=== PATIENT | female | born 1940 | race African-American/Black ===

== ENCOUNTER 2020-10-06 10:08 | Inpatient (IN) ==
[~2020-10-06 10:08] MED LIST: ASPIRIN 325 MG TABLET PO ONE; DIAZEPAM 5 MG TABLET PO ONE; MAGNESIUM SULF RIDER 2 GM/50 ML PREMIX IV PRN; POTASSIUM CHLORIDE RIDER 10 MEQ/100 ML PREMIX IV PRN; diphenhydrAMINE CAP 50 MG CAPSULE PO ONE
[2020-10-06 10:53] LABS: Basophils % 0.4 % (0.0-0.8); Eosinophils # 0.1 10*3/uL (0.0-0.87); Eosinophils % 1.5 % (0.00-10.9); Hematocrit 44.4 VOL% (35.7-47.0); Immature Granulocytes % 0.1 %; Immature Granulocytes Absolute 0.01 #; Lymphocytes # 2.1 10*3/uL (1.4-4.0); Mean Corpuscular HGB Conc 31.5 GM/DL (32-36); Mean Corpuscular Volume 85.7 FL (87-102); Mean Platelet Volume 12.6 FL (9.6-12.0); Monocytes % 11.4 % (1.7-12.7); Neutrophils % 54.6 % (38.7-73.9); Platelet Count 161 T/CUMM (130-400); Red Blood Count 5.18 MC/CUMM (3.8-5.5); Red Cell Distribution Width 12.5 % (9.3-17.3); White Blood Count 6.7 T/CUMM (4-12)
[2020-10-06] MEDS ORDERED: LIDOCAINE 1% 20 ML VIAL ONE (10:53)
[2020-10-06 11:03] LABS: INR 0.9; PT Patient Result 10.3 SECS (10.5-12.0)
[2020-10-06 11:12] LABS: Calcium 9.2 MG/DL (8.5-10.1); Osmolality,Calculated 282.4 MOS/KG (273-304)
[2020-10-06] MEDS ORDERED: ASPIRIN 325 MG TABLET ONE (11:13)
[2020-10-06] MEDS ORDERED: DIAZEPAM 5 MG TABLET ONE (11:13)
[2020-10-06] MEDS ORDERED: diphenhydrAMINE CAP 50 MG CAPSULE ONE (11:13)
[2020-10-06] MEDS: SODIUM CHLORIDE 0.9% 1,000 ML IV SCH ×2 (11:17→17:56)
[2020-10-06] MEDS ORDERED: HYDROmorphone 2 MG/1 ML VIAL ONE (11:48)
[2020-10-06] MEDS ORDERED: MIDAZOLAM 2 MG/2 ML VIAL ONE (11:48)
[2020-10-06] MEDS ORDERED: HEPARIN 5,000 UNIT/1 ML VIAL ONE ×2 (12:32→12:33)
[2020-10-06] MEDS ORDERED: hydrALAZINE 20 MG/1 ML VIAL ONE (13:30)
[2020-10-06] MEDS ORDERED: NITROGLYCERIN DRIP 50 MG/250 ML BOTTLE IV ONE (13:38)
[2020-10-06 19:37] LABS: Basophils % 0.1 % (0.0-0.8); Eosinophils # 0.1 10*3/uL (0.0-0.87); Eosinophils % 0.7 % (0.00-10.9); Hemoglobin 12.7 GM/DL (12.0-16.0); Immature Granulocytes % 0.5 %; Immature Granulocytes Absolute 0.05 #; Lymphocytes # 1.6 10*3/uL (1.4-4.0); Mean Corpuscular HGB Conc 30.2 GM/DL (32-36); Mean Corpuscular Volume 87.9 FL (87-102); Mean Platelet Volume 12.4 FL (9.6-12.0); Monocytes % 9.9 % (1.7-12.7); Neutrophils % 71.8 % (38.7-73.9); Platelet Count 143 T/CUMM (130-400); Red Blood Count 4.78 MC/CUMM (3.8-5.5); Red Cell Distribution Width 12.6 % (9.3-17.3); White Blood Count 9.2 T/CUMM (4-12)
[2020-10-06] MEDS ORDERED: MORPHINE 2 MG/1 ML SYRINGE IV PRN (19:54)
[2020-10-06 19:55] LABS: Calcium 8.5 MG/DL (8.5-10.1); Osmolality,Calculated 286.4 MOS/KG (273-304); Potassium 4.4 MMOL/L (3.5-5.1)
[2020-10-07] MEDS: SODIUM CHLORIDE 0.9% 1,000 ML IV SCH ×3 (01:26→23:23)
[2020-10-07] MEDS ORDERED: CLOPIDOGREL 75 MG TABLET PO SCH (09:00)
[2020-10-07] MEDS ORDERED: FUROSEMIDE 40 MG TABLET PO SCH (09:00)
[2020-10-07] MEDS ORDERED: lisinopriL 20 MG TABLET PO SCH (09:00)
[2020-10-07] MEDS: INSULIN REGULAR 100 UNIT/ML SUBCUT SCH ×5 (10:16→23:24)
[2020-10-07] MEDS: GABAPENTIN 300 MG CAPSULE PO SCH ×3 (10:16→20:25)
[2020-10-07] MEDS: MULTIVITAMIN (BEROCCA) TABLET PO SCH ×2 (10:16→12:58)
[2020-10-07] MEDS: INSULIN NPH 100 UNIT/ML SUBCUT SCH ×2 (10:16→23:24)
[2020-10-07] MEDS: OMEGA 3 ACID ETHYL ESTERS 1 GM CAPSULE PO SCH ×2 (10:17→12:59)
[2020-10-07] MEDS: PARoxetine 10 MG TABLET PO SCH ×2 (10:17→12:59)
[2020-10-07] MEDS: CHOLECALCIFEROL 1,000 UNIT TABLET PO SCH (10:19)
[2020-10-07] MEDS: carvediloL 6.25 MG TABLET PO SCH ×3 (10:24→20:25)
[2020-10-07] MEDS ORDERED: DIAZEPAM 5 MG TABLET PO ONE (10:31)
[2020-10-07] MEDS ORDERED: diphenhydrAMINE CAP 25 MG CAPSULE PO ONE (10:31)
[2020-10-07 10:40] LABS: Basophils % 0.2 % (0.0-0.8); Eosinophils # 0.1 10*3/uL (0.0-0.87); Eosinophils % 0.6 % (0.00-10.9); Hemoglobin 10.9 GM/DL (12.0-16.0); Immature Granulocytes % 0.5 %; Immature Granulocytes Absolute 0.04 #; Lymphocytes # 1.4 10*3/uL (1.4-4.0); Lymphocytes % 16.1 % (21.3-54.2); Mean Corpuscular HGB Conc 29.5 GM/DL (32-36); Mean Corpuscular Volume 88.1 FL (87-102); Mean Platelet Volume 11.7 FL (9.6-12.0); Monocytes % 11.9 % (1.7-12.7); Neutrophils % 70.7 % (38.7-73.9); Platelet Count 131 T/CUMM (130-400); Red Cell Distribution Width 12.8 % (9.3-17.3); White Blood Count 8.8 T/CUMM (4-12)
[2020-10-07] MEDS ORDERED: LIDOCAINE 1% 20 ML VIAL ONE (11:08)
[2020-10-07] MEDS ORDERED: HYDROmorphone 2 MG/1 ML VIAL ONE (11:11)
[2020-10-07] MEDS ORDERED: MIDAZOLAM 2 MG/2 ML VIAL ONE (11:12)
[2020-10-07 11:22] LABS: Calcium 8.1 MG/DL (8.5-10.1); Osmolality,Calculated 290.4 MOS/KG (273-304); Potassium 4.2 MMOL/L (3.5-5.1)
[2020-10-07] MEDS ORDERED: HEPARIN 5,000 UNIT/1 ML VIAL ONE (11:42)
[2020-10-07] MEDS ORDERED: ZALEPLON 5 MG CAPSULE PO PRN (11:55)
[2020-10-07] MEDS ORDERED: ONDANSETRON 4 MG/2 ML VIAL IV PRN (11:55)
[2020-10-07] MEDS ORDERED: NITROGLYCERIN SL 0.4 MG TABLET SL PRN (11:55)
[2020-10-07] MEDS ORDERED: CLOPIDOGREL 300 MG TABLET ONE (11:58)
[2020-10-07] MEDS ORDERED: GLUCAGON 1 MG VIAL IM PRN (12:46)
[2020-10-07] MEDS ORDERED: DEXTROSE 50% 25 GM/50 ML VIAL IV PRN (12:46)
[2020-10-07] MEDS ORDERED: ROSUVASTATIN 20 MG TABLET PO SCH (21:00)
[2020-10-08 06:30] LABS: Basophils % 0.1 % (0.0-0.8); Eosinophils # 0.1 10*3/uL (0.0-0.87); Eosinophils % 1.4 % (0.00-10.9); Hematocrit 30.4 VOL% (35.7-47.0); Hemoglobin 9.2 GM/DL (12.0-16.0); Immature Granulocytes % 0.4 %; Immature Granulocytes Absolute 0.03 #; Lymphocytes # 1.9 10*3/uL (1.4-4.0); Lymphocytes % 22.5 % (21.3-54.2); Mean Corpuscular HGB Conc 30.3 GM/DL (32-36); Mean Corpuscular Volume 88.6 FL (87-102); Mean Platelet Volume 13.4 FL (9.6-12.0); Monocytes % 13.1 % (1.7-12.7); Neutrophils % 62.5 % (38.7-73.9); Platelet Count 106 T/CUMM (130-400); Red Blood Count 3.43 MC/CUMM (3.8-5.5); Red Cell Distribution Width 12.9 % (9.3-17.3); White Blood Count 8.3 T/CUMM (4-12)
[2020-10-08 06:50] LABS: Hypochromasia Slight; Microcytosis Slight; Platelet Estimate Decreased
[2020-10-08 07:05] LABS: Osmolality,Calculated 287.8 MOS/KG (273-304); Potassium 4.3 MMOL/L (3.5-5.1)
[2020-10-08] MEDS: INSULIN REGULAR 100 UNIT/ML SUBCUT SCH ×4 (09:55→12:33)
[2020-10-08] MEDS: carvediloL 6.25 MG TABLET PO SCH (09:55)
[2020-10-08] MEDS: MULTIVITAMIN (BEROCCA) TABLET PO SCH (09:55)
[2020-10-08] MEDS: PARoxetine 10 MG TABLET PO SCH (09:55)
[2020-10-08] MEDS: GABAPENTIN 300 MG CAPSULE PO SCH (09:55)
[2020-10-08] MEDS: CHOLECALCIFEROL 1,000 UNIT TABLET PO SCH (09:55)
[2020-10-08] MEDS: OMEGA 3 ACID ETHYL ESTERS 1 GM CAPSULE PO SCH (09:55)
[2020-10-08] MEDS: SODIUM CHLORIDE 0.9% 1,000 ML IV SCH (09:56)
[2020-10-08] MEDS: INSULIN NPH 100 UNIT/ML SUBCUT SCH (09:58)
[2020-10-08] MEDS ORDERED: ACETAMINOPHEN 500 MG TABLET PO PRN (10:57)
[2020-10-08 12:07] LABS: Hematocrit 29.8 VOL% (35.7-47.0); Hemoglobin 9.1 GM/DL (12.0-16.0)
[2020-10-08 12:11] VITALS: BP 174/57
== END 2020-10-08 15:08 | disposition home or self-care (01) | DRG 252 ==
LOC: N.5E 10:08 → N.CL 10:08 → N.5E 14:46
PROVIDERS: ADMIT Internal Medicine Cardiovascular Disease; ATTEND Internal Medicine Cardiovascular Disease

== ENCOUNTER 2020-10-10 10:43 | Inpatient (IN) ==
[2020-10-10 11:21] LABS: Basophils % 0.2 % (0.0-0.8); Eosinophils % 0.4 % (0.00-10.9); Hematocrit 27.7 VOL% (35.7-47.0); Hemoglobin 8.7 GM/DL (12.0-16.0); Immature Granulocytes % 0.6 %; Immature Granulocytes Absolute 0.06 #; Lymphocytes # 1.3 10*3/uL (1.4-4.0); Lymphocytes % 12.9 % (21.3-54.2); Mean Corpuscular HGB Conc 31.4 GM/DL (32-36); Monocytes % 12.9 % (1.7-12.7); Platelet Count 136 T/CUMM (130-400); Red Blood Count 3.26 MC/CUMM (3.8-5.5); Red Cell Distribution Width 12.6 % (9.3-17.3); White Blood Count 9.9 T/CUMM (4-12)
[2020-10-10 11:34] LABS: PT Patient Result 11.2 SECS (10.5-12.0); Partial Thromboplastin Time 24.6 SECS (23.9-33.8)
[2020-10-10 12:02] LABS: Albumin 2.8 G/DL (3.4-5.0); Bilirubin,Total 0.6 MG/DL (0.20-1.00); Calcium 8.1 MG/DL (8.5-10.1); Osmolality,Calculated 280.2 MOS/KG (273-304); Potassium 4.4 MMOL/L (3.5-5.1); Total Protein 5.9 G/DL (6.4-8.2)
[2020-10-10] MEDS ORDERED: DEXTROSE 50% 25 GM/50 ML VIAL IV PRN ×2 (13:04→15:44)
[2020-10-10] MEDS ORDERED: GLUCAGON 1 MG VIAL IM PRN ×2 (13:04→15:44)
[2020-10-10] MEDS ORDERED: ONDANSETRON 4 MG/2 ML VIAL IV PRN (15:44)
[2020-10-10] MEDS: RIVAROXABAN 20 MG TABLET PO SCH (18:36)
[2020-10-10] MEDS: FUROSEMIDE 40 MG TABLET PO SCH (18:36)
[2020-10-10] MEDS: INSULIN LISPRO 100 UNIT/ML SUBCUT SCH ×2 (18:45→22:45)
[2020-10-10] MEDS: ALBUTEROL/IPRATROPIUM 3 ML NEB RESP TX SCH (20:17)
[2020-10-10] MEDS ORDERED: ALBUTEROL/IPRATROPIUM 3 ML NEB RESP TX STA (21:54)
[2020-10-10 22:15] LABS: ABG Base Excess 0.7 MMOL/L (-2.5-2.5); ABG Oxygen Saturation 92.3 % (95-100); ABG PCO2 45.1 MM HG (35-48); ABG PH 7.372 (7.35-7.45); ABG PO2 66.4 MM HG (80-95); ABG TCO2 24.2 MMOL/L (23-27); Allen Test Positive; Pt O2 Delivery Device Other
[2020-10-10] MEDS: GABAPENTIN 300 MG CAPSULE PO SCH (22:44)
[2020-10-10] MEDS: carvediloL 6.25 MG TABLET PO SCH (22:45)
[2020-10-10] MEDS: ROSUVASTATIN 20 MG TABLET PO SCH (22:45)
[2020-10-10] MEDS: cefTRIAXone 1,000 MG in SODIUM CHLORIDE 0.9% 100 ML IV SCH (22:54)
[2020-10-10] MEDS: AZITHROMYCIN INJ 500 MG in SODIUM CHLORIDE 0.9% 250 ML IV SCH (23:30)
[2020-10-11 01:07] LABS: Basophils % 0.2 % (0.0-0.8); Eosinophils # 0.1 10*3/uL (0.0-0.87); Eosinophils % 0.6 % (0.00-10.9); Hematocrit 27.3 VOL% (35.7-47.0); Hemoglobin 8.5 GM/DL (12.0-16.0); Immature Granulocytes % 0.5 %; Immature Granulocytes Absolute 0.05 #; Lymphocytes # 0.9 10*3/uL (1.4-4.0); Lymphocytes % 8.5 % (21.3-54.2); Mean Corpuscular HGB Conc 31.1 GM/DL (32-36); Mean Corpuscular Volume 86.4 FL (87-102); Mean Platelet Volume 11.9 FL (9.6-12.0); Monocytes % 13.2 % (1.7-12.7); Platelet Count 137 T/CUMM (130-400); Red Blood Count 3.16 MC/CUMM (3.8-5.5); Red Cell Distribution Width 12.7 % (9.3-17.3); White Blood Count 10.8 T/CUMM (4-12)
[2020-10-11 01:24] LABS: Albumin 2.8 G/DL (3.4-5.0); Bilirubin,Total 0.6 MG/DL (0.20-1.00); Calcium 8.4 MG/DL (8.5-10.1); Osmolality,Calculated 277.2 MOS/KG (273-304); Potassium 4.1 MMOL/L (3.5-5.1); Total Protein 6.5 G/DL (6.4-8.2)
[2020-10-11] MEDS: ALBUTEROL/IPRATROPIUM 3 ML NEB RESP TX SCH ×4 (02:38→20:00)
[2020-10-11] MEDS: INSULIN LISPRO 100 UNIT/ML SUBCUT SCH ×4 (07:30→21:52)
[2020-10-11] MEDS: carvediloL 6.25 MG TABLET PO SCH ×2 (10:03→21:52)
[2020-10-11] MEDS: FUROSEMIDE 40 MG TABLET PO SCH (10:03)
[2020-10-11] MEDS: GABAPENTIN 300 MG CAPSULE PO SCH ×2 (10:03→21:52)
[2020-10-11] MEDS: lisinopriL 20 MG TABLET PO SCH (10:04)
[2020-10-11] MEDS: PARoxetine 10 MG TABLET PO SCH (10:04)
[2020-10-11] MEDS: CLOPIDOGREL 75 MG TABLET PO SCH (10:04)
[2020-10-11] MEDS: PANTOPRAZOLE 40 MG TABLET PO SCH (10:04)
[2020-10-11] MEDS: RIVAROXABAN 20 MG TABLET PO SCH ×2 (10:45→21:51)
[2020-10-11] MEDS: FUROSEMIDE 20 MG/2 ML VIAL IV SCH (16:52)
[2020-10-11] MEDS: ROSUVASTATIN 20 MG TABLET PO SCH (21:51)
[2020-10-11] MEDS: cefTRIAXone 1,000 MG in SODIUM CHLORIDE 0.9% 100 ML IV SCH (21:52)
[2020-10-11] MEDS: AZITHROMYCIN INJ 500 MG in SODIUM CHLORIDE 0.9% 250 ML IV SCH (22:30)
[2020-10-12] MEDS: ALBUTEROL/IPRATROPIUM 3 ML NEB RESP TX SCH ×4 (01:19→19:12)
[2020-10-12 05:54] LABS: Basophils % 0.3 % (0.0-0.8); Eosinophils # 0.2 10*3/uL (0.0-0.87); Eosinophils % 3.1 % (0.00-10.9); Hematocrit 25.6 VOL% (35.7-47.0); Hemoglobin 7.9 GM/DL (12.0-16.0); Immature Granulocytes % 0.5 %; Immature Granulocytes Absolute 0.04 #; Lymphocytes # 1.7 10*3/uL (1.4-4.0); Lymphocytes % 21.3 % (21.3-54.2); Mean Corpuscular HGB Conc 30.9 GM/DL (32-36); Mean Corpuscular Volume 86.8 FL (87-102); Monocytes % 19.3 % (1.7-12.7); Neutrophils % 55.5 % (38.7-73.9); Platelet Count 148 T/CUMM (130-400); Red Blood Count 2.95 MC/CUMM (3.8-5.5); Red Cell Distribution Width 12.5 % (9.3-17.3); White Blood Count 7.8 T/CUMM (4-12)
[2020-10-12 06:22] LABS: Calcium 8.2 MG/DL (8.5-10.1); Osmolality,Calculated 275.4 MOS/KG (273-304); Potassium 4.3 MMOL/L (3.5-5.1)
[2020-10-12 06:26] LABS: Eosinophils 3 % (0-10); Hypochromasia 1+; Lymphocytes 14 % (20-55); Microcytosis 1+; Ovalocytes Slight; Segmented Neutrophils 61 % (50-85); Total Cells Counted 100
[2020-10-12] MEDS: CLOPIDOGREL 75 MG TABLET PO SCH (09:43)
[2020-10-12] MEDS: PARoxetine 10 MG TABLET PO SCH (09:44)
[2020-10-12] MEDS: GABAPENTIN 300 MG CAPSULE PO SCH ×2 (09:45→21:06)
[2020-10-12] MEDS: lisinopriL 20 MG TABLET PO SCH (09:45)
[2020-10-12] MEDS: carvediloL 6.25 MG TABLET PO SCH ×2 (09:45→21:04)
[2020-10-12] MEDS: INSULIN LISPRO 100 UNIT/ML SUBCUT SCH ×4 (09:46→21:05)
[2020-10-12] MEDS: PANTOPRAZOLE 40 MG TABLET PO SCH (09:46)
[2020-10-12] MEDS: FUROSEMIDE 20 MG/2 ML VIAL IV SCH (10:40)
[2020-10-12] MEDS: RIVAROXABAN 20 MG TABLET PO SCH (21:06)
[2020-10-12] MEDS: ROSUVASTATIN 20 MG TABLET PO SCH (21:06)
[2020-10-12] MEDS: cefTRIAXone 1,000 MG in SODIUM CHLORIDE 0.9% 100 ML IV SCH (22:01)
[2020-10-12] MEDS: AZITHROMYCIN INJ 500 MG in SODIUM CHLORIDE 0.9% 250 ML IV SCH (22:02)
[2020-10-13] MEDS: ALBUTEROL/IPRATROPIUM 3 ML NEB RESP TX SCH ×4 (00:50→19:13)
[2020-10-13 06:28] LABS: Eosinophils # 0.2 10*3/uL (0.0-0.87); Eosinophils % 2.1 % (0.00-10.9); Hematocrit 25.2 VOL% (35.7-47.0); Immature Granulocytes % 0.5 %; Immature Granulocytes Absolute 0.04 #; Lymphocytes # 1.3 10*3/uL (1.4-4.0); Lymphocytes % 16.6 % (21.3-54.2); Mean Corpuscular HGB Conc 31.7 GM/DL (32-36); Mean Corpuscular Volume 85.4 FL (87-102); Mean Platelet Volume 12.3 FL (9.6-12.0); Monocytes % 17.6 % (1.7-12.7); Neutrophils % 63.2 % (38.7-73.9); Platelet Count 173 T/CUMM (130-400); Red Blood Count 2.95 MC/CUMM (3.8-5.5); Red Cell Distribution Width 12.3 % (9.3-17.3); White Blood Count 7.6 T/CUMM (4-12)
[2020-10-13 06:45] LABS: Calcium 8.3 MG/DL (8.5-10.1); Osmolality,Calculated 272.9 MOS/KG (273-304); Potassium 4.8 MMOL/L (3.5-5.1)
[2020-10-13 07:20] LABS: Anisocytosis 2+; Eosinophils 2 % (0-10); Lymphocytes 18 % (20-55); Platelet Estimate Normal; Segmented Neutrophils 62 % (50-85); Total Cells Counted 100
[2020-10-13 07:21] LABS: Burr Cells Few
[2020-10-13] MEDS: INSULIN LISPRO 100 UNIT/ML SUBCUT SCH ×4 (09:15→20:56)
[2020-10-13] MEDS: carvediloL 6.25 MG TABLET PO SCH ×2 (09:16→20:44)
[2020-10-13] MEDS: GABAPENTIN 300 MG CAPSULE PO SCH ×2 (09:16→20:44)
[2020-10-13] MEDS: PARoxetine 10 MG TABLET PO SCH (09:17)
[2020-10-13] MEDS: CLOPIDOGREL 75 MG TABLET PO SCH (09:17)
[2020-10-13] MEDS: PANTOPRAZOLE 40 MG TABLET PO SCH (09:17)
[2020-10-13] MEDS: ROSUVASTATIN 20 MG TABLET PO SCH (20:44)
[2020-10-13] MEDS: RIVAROXABAN 20 MG TABLET PO SCH (20:44)
[2020-10-13] MEDS: MAGNESIUM HYDROXIDE SUSP 30 ML UDCUP PO PRN (20:45)
[2020-10-13] MEDS: cefTRIAXone 1,000 MG in SODIUM CHLORIDE 0.9% 100 ML IV SCH (21:58)
[2020-10-13] MEDS: AZITHROMYCIN INJ 500 MG in SODIUM CHLORIDE 0.9% 250 ML IV SCH (23:26)
[2020-10-14] MEDS: ALBUTEROL/IPRATROPIUM 3 ML NEB RESP TX SCH ×4 (00:18→19:30)
[2020-10-14 05:24] LABS: Basophils % 0.1 % (0.0-0.8); Eosinophils # 0.1 10*3/uL (0.0-0.87); Eosinophils % 1.9 % (0.00-10.9); Hemoglobin 7.4 GM/DL (12.0-16.0); Immature Granulocytes % 0.4 %; Immature Granulocytes Absolute 0.03 #; Lymphocytes # 1.2 10*3/uL (1.4-4.0); Mean Corpuscular HGB Conc 32.2 GM/DL (32-36); Mean Corpuscular Volume 83.3 FL (87-102); Mean Platelet Volume 11.6 FL (9.6-12.0); Monocytes % 17.8 % (1.7-12.7); Neutrophils % 62.8 % (38.7-73.9); Platelet Count 192 T/CUMM (130-400); Red Blood Count 2.76 MC/CUMM (3.8-5.5); Red Cell Distribution Width 12.4 % (9.3-17.3)
[2020-10-14 05:50] LABS: Calcium 8.1 MG/DL (8.5-10.1); Osmolality,Calculated 271.9 MOS/KG (273-304); Potassium 4.6 MMOL/L (3.5-5.1)
[2020-10-14 05:51] LABS: Eosinophils 2 % (0-10); Hypochromasia 1+; Lymphocytes 18 % (20-55); Microcytosis 1+; Platelet Estimate Adequate; Segmented Neutrophils 61 % (50-85); Total Cells Counted 100
[2020-10-14] MEDS: GABAPENTIN 300 MG CAPSULE PO SCH ×2 (09:32→21:03)
[2020-10-14] MEDS: INSULIN LISPRO 100 UNIT/ML SUBCUT SCH ×4 (09:32→21:03)
[2020-10-14] MEDS: PANTOPRAZOLE 40 MG TABLET PO SCH (09:32)
[2020-10-14] MEDS: carvediloL 6.25 MG TABLET PO SCH ×2 (09:32→21:03)
[2020-10-14] MEDS: PARoxetine 10 MG TABLET PO SCH (09:32)
[2020-10-14] MEDS: CLOPIDOGREL 75 MG TABLET PO SCH (09:32)
[2020-10-14] MEDS: MAGNESIUM HYDROXIDE SUSP 30 ML UDCUP PO PRN (09:33)
[2020-10-14] MEDS: POLYETHYLENE GLYCOL POWDER 17 GM PACK PO SCH (21:02)
[2020-10-14] MEDS: RIVAROXABAN 20 MG TABLET PO SCH (21:02)
[2020-10-14] MEDS: ROSUVASTATIN 20 MG TABLET PO SCH (21:02)
[2020-10-14] MEDS: AZITHROMYCIN INJ 500 MG in SODIUM CHLORIDE 0.9% 250 ML IV SCH (22:13)
[2020-10-14] MEDS: cefTRIAXone 1,000 MG in SODIUM CHLORIDE 0.9% 100 ML IV SCH (22:13)
[2020-10-15] MEDS: ALBUTEROL/IPRATROPIUM 3 ML NEB RESP TX SCH ×4 (01:35→19:50)
[2020-10-15 04:10] LABS: Basophils % 0.2 % (0.0-0.8); Eosinophils # 0.2 10*3/uL (0.0-0.87); Eosinophils % 2.6 % (0.00-10.9); Hematocrit 24.7 VOL% (35.7-47.0); Hemoglobin 7.6 GM/DL (12.0-16.0); Immature Granulocytes % 0.8 %; Immature Granulocytes Absolute 0.05 #; Lymphocytes # 1.3 10*3/uL (1.4-4.0); Lymphocytes % 19.4 % (21.3-54.2); Mean Corpuscular HGB Conc 30.8 GM/DL (32-36); Mean Corpuscular Volume 84.9 FL (87-102); Mean Platelet Volume 11.2 FL (9.6-12.0); Monocytes % 19.5 % (1.7-12.7); Neutrophils % 57.5 % (38.7-73.9); Platelet Count 234 T/CUMM (130-400); Red Blood Count 2.91 MC/CUMM (3.8-5.5); Red Cell Distribution Width 12.4 % (9.3-17.3); White Blood Count 6.5 T/CUMM (4-12)
[2020-10-15 04:29] LABS: Calcium 8.3 MG/DL (8.5-10.1); Osmolality,Calculated 281.1 MOS/KG (273-304); Potassium 4.7 MMOL/L (3.5-5.1)
[2020-10-15 04:35] LABS: Eosinophils 3 % (0-10); Lymphocytes 22 % (20-55); Platelet Estimate Normal; Segmented Neutrophils 65 % (50-85); Total Cells Counted 100
[2020-10-15 04:36] LABS: Hypochromasia Slight; Microcytosis 1+
[2020-10-15] MEDS ORDERED: POLYETHYLENE GLYCOL POWDER 17 GM PACK PO SCH (09:00)
[2020-10-15] MEDS ORDERED: BISACODYL 10 MG SUPP RECTAL ONE (09:03)
[2020-10-15] MEDS: INSULIN LISPRO 100 UNIT/ML SUBCUT SCH ×4 (09:23→22:31)
[2020-10-15] MEDS ORDERED: MAGNESIUM CITRATE 300 ML BOTTLE PO ONE (09:56)
[2020-10-15] MEDS: PARoxetine 10 MG TABLET PO SCH (10:31)
[2020-10-15] MEDS: PANTOPRAZOLE 40 MG TABLET PO SCH (10:32)
[2020-10-15] MEDS: GABAPENTIN 300 MG CAPSULE PO SCH ×2 (10:32→22:30)
[2020-10-15] MEDS: POLYETHYLENE GLYCOL POWDER 17 GM PACK PO SCH (10:33)
[2020-10-15] MEDS: CLOPIDOGREL 75 MG TABLET PO SCH (10:36)
[2020-10-15] MEDS: carvediloL 6.25 MG TABLET PO SCH ×2 (12:23→22:30)
[2020-10-15] MEDS: cefTRIAXone 1,000 MG in SODIUM CHLORIDE 0.9% 100 ML IV SCH (22:30)
[2020-10-15] MEDS: RIVAROXABAN 20 MG TABLET PO SCH (22:30)
[2020-10-15] MEDS: ROSUVASTATIN 20 MG TABLET PO SCH (22:30)
[2020-10-16] MEDS: ALBUTEROL/IPRATROPIUM 3 ML NEB RESP TX SCH ×2 (01:17→07:40)
[2020-10-16 06:16] LABS: Basophils % 0.4 % (0.0-0.8); Eosinophils # 0.2 10*3/uL (0.0-0.87); Eosinophils % 2.8 % (0.00-10.9); Hematocrit 25.3 VOL% (35.7-47.0); Hemoglobin 7.7 GM/DL (12.0-16.0); Immature Granulocytes % 0.7 %; Immature Granulocytes Absolute 0.05 #; Lymphocytes # 1.6 10*3/uL (1.4-4.0); Mean Corpuscular HGB Conc 30.4 GM/DL (32-36); Mean Corpuscular Volume 85.5 FL (87-102); Mean Platelet Volume 11.2 FL (9.6-12.0); Monocytes % 16.8 % (1.7-12.7); Neutrophils % 57.3 % (38.7-73.9); Platelet Count 280 T/CUMM (130-400); Red Blood Count 2.96 MC/CUMM (3.8-5.5); Red Cell Distribution Width 12.6 % (9.3-17.3); White Blood Count 7.1 T/CUMM (4-12)
[2020-10-16 06:29] LABS: Calcium 8.7 MG/DL (8.5-10.1); Osmolality,Calculated 277.1 MOS/KG (273-304); Potassium 4.9 MMOL/L (3.5-5.1)
[2020-10-16 06:50] LABS: Anisocytosis 2+; Basophilic Stippling Slight; Eosinophils 2 % (0-10); Lymphocytes 19 % (20-55); Macrocytosis 1+; Platelet Estimate Normal; Poikilocytosis Slight; Segmented Neutrophils 63 % (50-85); Total Cells Counted 100
[2020-10-16] MEDS: INSULIN LISPRO 100 UNIT/ML SUBCUT SCH ×2 (08:09→12:07)
[2020-10-16] MEDS: PANTOPRAZOLE 40 MG TABLET PO SCH (09:08)
[2020-10-16] MEDS: GABAPENTIN 300 MG CAPSULE PO SCH (09:08)
[2020-10-16] MEDS: CLOPIDOGREL 75 MG TABLET PO SCH (09:08)
[2020-10-16] MEDS: PARoxetine 10 MG TABLET PO SCH (09:08)
[2020-10-16] MEDS: POLYETHYLENE GLYCOL POWDER 17 GM PACK PO SCH (09:09)
[2020-10-16] MEDS: carvediloL 6.25 MG TABLET PO SCH (09:13)
[2020-10-16 12:22] VITALS: BP 177/52
== END 2020-10-16 14:23 | disposition home health service (06) | DRG 194 ==
LOC: N.ED 10:43 → N.EDINP 10:43 → SUATTDRO 15:44 → N.3E 17:07 → SUATTDRO 10-12 09:49
PROVIDERS: ADMIT Nurse Practitioner Family; ATTEND Emergency Medicine